=== PATIENT | male | born 1990 | race Caucasian/White ===

== ENCOUNTER 2020-10-12 18:29 | Emergency (ER) | payer OTHER, SELFPAY ==
[2020-10-12 18:29] VITALS: BP 131/82; PULSE 83; RESP 18; TEMP 36.6; O2SAT 98
--- NOTE | 2020-10-12 18:33 | PC.NURSE ---
TRAUMA ALERT CANCELLED
[2020-10-12 18:37] VITALS: BMI 25.0
--- NOTE | 2020-10-12 18:44 | XR_ITS ---
PROCEDURE INFORMATION: Exam: XR Chest Exam date and time: 10/12/2020 6:44 PM Age: 30 years old Clinical indication: Injury or trauma; Fall; Work related; Blunt trauma (contusions or hematomas); Injury date: 10/12/2020; Injury details: Fell out of a [employer] barn; Additional info: Fall 15 ft TECHNIQUE: Imaging protocol: XR of the chest. Views: 2 views. COMPARISON: No relevant prior studies available. FINDINGS: Lungs: Unremarkable. No consolidation. Pleural spaces: Unremarkable. No pleural effusion. No pneumothorax. Heart/Mediastinum: Unremarkable. No cardiomegaly. Bones/joints: Unremarkable. IMPRESSION: No acute findings.
--- NOTE | 2020-10-12 18:44 | [facility].EDTRAUMA ---
ED Disposition Clinical Impression: Contusion of right shoulder Qualifiers: Encounter type: initial encounter Qualified Code(s): S40.011A - Contusion of right shoulder, initial encounter Scalp contusion Qualifiers: Encounter type: initial encounter Qualified Code(s): S00.03XA - Contusion of scalp, initial encounter Back abrasion Qualifiers: Encounter type: initial encounter Laterality: unspecified laterality Qualified Code(s): S20.419A - Abrasion of unspecified back wall of thorax, initial encounter Fall Qualifiers: Encounter type: initial encounter Qualified Code(s): W19.XXXA - Unspecified fall, initial encounter Disposition: Home, Self-Care Condition on Discharge: Good Instructions: DI for Closed Head Injury, DI for Contusion, How to Use a Sling, DI for Abrasion Additional Instructions: Sling for 2 to 3 days. Ice to shoulder 20 minutes 4-5 times a day for 2 to 3 days. Ibuprofen for pain. Follow-up with primary care if not improved in 4 to 5 days. Additional instructions for HEAD INJURY: See your physician as soon as possible for further evaluation. Return immediately if severe headache, vomiting, problems with vision or speech, numbness or weakness of the extremities, or severe neck pain. Additional instructions for TRAUMA: See your physician as soon as possible for further evaluation. Return to the emergency department immediately if severe headache, altered mental status or confusion, severe chest pain, shortness of breath, abdominal pain, vomiting, severe neck pain, numbness or weakness of arms or legs. Prescriptions: Ibuprofen [Ibuprofen 800mg Tablet] 800 mg PO Q8HP PRN #15 tab PRN Reason: Moderate Pain Prescription Printed Referrals: Provider,Referral, [Primary Care Provider] - - Critical Care Critical Care Time: No Attestation: On , the high probability of a clinically significant, sudden or life threatening deterioration of the following system(s) required my full and direct attention, intervention and personal management. The time I documented below is in addition to time spent performing reported procedures but includes the following listed in this critical care notation. Medical Decision Making - Cam Inquiry Pt receiving controlled substance: No Vital Signs: 10/12/20 18:29 Temperature 98 F Temperature Source Oral Pulse Rate [Radial] 83 Respiratory Rate 18 Blood Pressure [Right Arm] 131/82 Blood Pressure Mean [Right Arm] 98 02 Sat by Pulse Oximetry 98 Oxygen Delivery Method Room Air - Lab Data Lab Results 10/12/20 18:35: Sodium 140, Potassium 3.6, Chloride 101, Carbon Dioxide 27, Anion Gap 15.6 H, BUN 21 H, Creatinine 1.20, Estimated Creat Clear 94, Estimated GFR 70, Est GFR ( Amer) 85, Glucose 115 H, Calcium 8.8 10/12/20 18:38: WBC 11.4 H, RBC 4.89, Hgb 14.9, Hct 44.7, MCV 91.6, MCH 30.4, MCHC 33.2, RDW 13.5, Plt Count 389, MPV 8.5, Neut % (Auto) 45.7, Lymph % (Auto) 33.4, Hodgeman % (Auto) 4.7, Eos % (Auto) 15.1 H, Baso % (Auto) 1.1, Neut # (Auto) 5.2, Lymph # (Auto) 3.8, Hodgeman # (Auto) 0.5, Eos # (Auto) 1.7 H, Baso # (Auto) 0.1 Result diagrams: 10/12/20 18:38 10/12/20 18:35 Orders (Tests/Meds): ED MEDICATIONS Discontinued Medications Generic Name Dose Route Start Last Admin Trade Name Freq PRN Reason Stop Dose Admin Ketorolac Tromethamine 30 mg 10/12/20 20:40 Ketorolac 30mg/Ml Vial IV 10/12/20 20:41 ONCE ONE - Radiology Data #1 Image(s): Chest, Shoulder, Pelvis, Other (scapula) Image Reviewed: Yes I have reviewed radiologist's interpretation PROCEDURE INFORMATION: Exam: XR Right Shoulder Exam date and time: 10/12/2020 6:46 PM Age: 30 years old Clinical indication: Injury or trauma; Fall; Work related; Blunt trauma (contusions or hematomas); Shoulder; Right; Injury date: 10/12/2020; Additional info: Fall 15 ft pain and abrasions RT posterior shoulder TECHNIQUE: Imaging protocol: XR Right shoulder.
--- NOTE | 2020-10-12 18:45 | CT_ITS ---
PROCEDURE INFORMATION: Exam: CT Cervical Spine Without Contrast Exam date and time: 10/12/2020 6:45 PM Age: 30 years old Clinical indication: Injury or trauma; Fall; Work related; Blunt trauma; Injury date: 10/12/2020; Injury details: Fell out of a tobacco barn; Additional info: Fall 15 ft pain RT shoulder and neck TECHNIQUE: Imaging protocol: Computed tomography images of the cervical spine without contrast. Radiation optimization: All CT scans at this facility use at least one of these dose optimization techniques: automated exposure control; mA and/or kV adjustment per patient size (includes targeted exams where dose is matched to clinical indication); or iterative reconstruction. COMPARISON: CT HEAD/BRAIN WO CON 10/12/2020 7:42 PM FINDINGS: Bones/joints: There is a nonspecific reversal of the normal cervical lordosis. There is no evidence of acute fracture. Discs/Spinal canal/Neural foramina: No significant disc protrusion. No severe spinal canal stenosis. No significant neural foraminal narrowing. Lungs: Lung apices are normal. Soft tissues: There are no soft tissue masses or fluid collections. IMPRESSION: 1. There is a nonspecific reversal of the normal cervical lordosis. 2. No evidence of acute fracture.
--- NOTE | 2020-10-12 18:45 | CT_ITS ---
PROCEDURE INFORMATION: Exam: CT Head Without Contrast Exam date and time: 10/12/2020 6:45 PM Age: 30 years old Clinical indication: Injury or trauma; Fall; Work related; Blunt trauma (contusions or hematomas); Without loss of consciousness; Injury date: 10/12/2020; Injury details: Fell out of a tobacco barn; Additional info: Fall 15 ft pain RT shoulder and head and neck TECHNIQUE: Imaging protocol: Computed tomography of the head without contrast. Radiation optimization: All CT scans at this facility use at least one of these dose optimization techniques: automated exposure control; mA and/or kV adjustment per patient size (includes targeted exams where dose is matched to clinical indication); or iterative reconstruction. COMPARISON: No relevant prior studies available. FINDINGS: Brain: Normal. No hemorrhage. Unremarkable white matter. No mass effect. Cerebral ventricles: No ventriculomegaly. Paranasal sinuses: Visualized sinuses are unremarkable. No fluid levels. Mastoid air cells: Visualized mastoid air cells are well aerated. Bones/joints: No acute fracture. Soft tissues: No acute changes IMPRESSION: No acute intracranial abnormality.
--- NOTE | 2020-10-12 18:45 | XR_ITS ---
PROCEDURE INFORMATION: Exam: XR Pelvis Exam date and time: 10/12/2020 6:45 PM Age: 30 years old Clinical indication: Injury or trauma; Fall; Work related; Blunt trauma (contusions or hematomas); Bilateral; Pelvic region; Injury date: 10/12/2020; Injury details: Fell out of a tobacco barn; Additional info: Fall 15 ft TECHNIQUE: Imaging protocol: XR pelvis. Views: 1 or 2 view. COMPARISON: No relevant prior studies available. FINDINGS: Bones/joints: There is no evidence of acute fracture. There is no evidence of joint malalignment or dislocation. Soft tissues: There are no soft tissue masses or fluid collections. IMPRESSION: 1. No evidence of acute fracture. 2. No evidence of acute dislocation.
--- NOTE | 2020-10-12 18:46 | XR_ITS ---
PROCEDURE INFORMATION: Exam: XR Right Scapula Exam date and time: 10/12/2020 6:46 PM Age: 30 years old Clinical indication: Injury or trauma; Fall; Work related; Blunt trauma (contusions or hematomas); Shoulder; Right; Injury date: 10/12/2020; Injury details: Fell out of tobacco barn; Additional info: Fall 15 ft pain RT shoulder area abraisions on his upper back and shoulders TECHNIQUE: Imaging protocol: XR Right scapula, complete. COMPARISON: CR XR SHOULDER RT MIN 2V 10/12/2020 7:20 PM FINDINGS: Bones/joints: There is no evidence of acute fracture. There is no evidence of joint malalignment or dislocation. Soft tissues: There are no soft tissue masses or fluid collections. IMPRESSION: 1. No evidence of acute fracture. 2. No evidence of acute dislocation.
--- NOTE | 2020-10-12 18:46 | XR_ITS ---
PROCEDURE INFORMATION: Exam: XR Right Shoulder Exam date and time: 10/12/2020 6:46 PM Age: 30 years old Clinical indication: Injury or trauma; Fall; Work related; Blunt trauma (contusions or hematomas); Shoulder; Right; Injury date: 10/12/2020; Additional info: Fall 15 ft pain and abrasions RT posterior shoulder TECHNIQUE: Imaging protocol: XR Right shoulder. Views: 2 or more views. COMPARISON: CR XR CHEST 2V 10/12/2020 7:17 PM FINDINGS: Bones/joints: There is no evidence of acute fracture. There is no evidence of joint malalignment or dislocation. Soft tissues: There are no soft tissue masses or fluid collections. IMPRESSION: 1. No evidence of acute fracture. 2. No evidence of acute dislocation.
[2020-10-12 18:52] LABS: Basophils # 0.1 K/mm3 (0-0.2); Basophils % 1.1 % (0.1-2.0); Eosinophils # 1.7 K/mm3 (0.0-0.4); Eosinophils % 15.1 % (0.1-12.0); Hematocrit 44.7 % (42.0-52.0); Hemoglobin 14.9 g/dL (14.1-18.0); Lymphocytes # 3.8 K/mm3 (0.7-4.5); Lymphocytes % 33.4 % (10-50); Mean Corpuscular HGB Conc 33.2 g/dL (31.8-35.4); Mean Corpuscular Hemoglobin 30.4 pg (27.0-31.2); Mean Corpuscular Volume 91.6 fl (80-94); Mean Platelet Volume 8.5 fl (7.4-10.4); Monocytes # 0.5 K/mm3 (0.1-1.0); Monocytes % 4.7 % (1.7-9.3); Neutrophils # 5.2 K/mm3 (1.8-7.8); Neutrophils % 45.7 % (37.0-80.0); Platelet Count 389 K/mm3 (142-424); Red Blood Count 4.89 M/mm3 (4.60-6.20); Red Cell Distribution Width 13.5 % (11.5-17.5); White Blood Count 11.4 K/mm3 (4.8-10.8)
[2020-10-12 18:53] LABS: Chloride 101 mmol/L (98-107); Potassium 3.6 mmoL/L (3.5-5.1); Sodium 140 mmol/L (136-145)
[2020-10-12 18:56] LABS: Anion Gap 15.6 mEq/L (5-15); Blood Urea Nitrogen 21 mg/dl (9-20); Calcium 8.8 mg/dl (8.4-10.2); Carbon Dioxide 27 mmol/L (22.0-30.0); Creatinine Clearance Estimated 94 mL/min (50-200); Estimated Glomerular Filt Rate 70 ml/min (>60); GFR (African American) 85 ML/MIN (>60); Glucose 115 mg/dl (74-100)
[2020-10-12 21:59] VITALS: BP 128/76; PULSE 80; RESP 16; TEMP 36.8; O2SAT 98
== END 2020-10-12 22:02 | disposition home or self-care (01) ==
PROVIDERS: Emergency Provider Emergency Medicine
DX: S40.011A Contusion of right shoulder, initial encounter (principal); S00.03XA Contusion of scalp, initial encounter; S20.419A Abrasion of unspecified back wall of thorax, initial encounter; W17.89XA Other fall from one level to another, initial encounter; Y92.71 Barn as the place of occurrence of the external cause
CPT/HCPCS: 70450; 71046; 72125; 72170; 73010; 73030; 80048; 85025; 96374; 96375; 99281